=== PATIENT | male | born 1970 | race African-American/Black ===

== ENCOUNTER 2019-02-14 10:17 | Inpatient (IN) | payer OTHER ==
[2019-02-11 18:36] VITALS: BMI 33.8
[2019-02-14] MEDS ORDERED: HEPARIN NA (PORCINE) 5,000 UNITS/ML 1ML VIAL ONE (12:19)
[2019-02-14] MEDS ORDERED: BENZOIN TINCTURE SWABSTICK TP ONE (12:19)
[2019-02-14] MEDS ORDERED: THROMBIN (BOVINE) 5,000 UNIT VIAL TP ONE ×2 (12:19→14:32)
[2019-02-14] MEDS ORDERED: fentaNYL CITRATE 250 MCG/5 ML VIAL ONE (12:37)
[2019-02-14] MEDS ORDERED: PROPOFOL 20 ML ONE ×10 (12:37→15:39)
[2019-02-14] MEDS ORDERED: NEOSTIGMINE METHYLSULFATE 0.5 MG/1 ML - 10 ML MDV ONE (12:37)
[2019-02-14] MEDS ORDERED: MIDAZOLAM HCL 2 MG/2 ML SINGLE DOSE VIAL ONE ×3 (12:38→14:23)
[2019-02-14] MEDS ORDERED: TRANEXAMIC ACID 1000 MG/10 ML VIAL ONE ×2 (12:40→16:22)
[2019-02-14] MEDS ORDERED: EPHEDRINE SULFATE/0.9% NACL/PF 50 MG/10 ML SYRINGE NR ONE ×2 (12:40)
[2019-02-14] MEDS ORDERED: ePHEDrine SULFATE 50 MG/1 ML AMPULE ONE (12:41)
[2019-02-14] MEDS ORDERED: BUPIVACAINE HCL/PF 0.5% (5 MG/ML) 30 ML VIAL IJ ONE (13:11)
[2019-02-14] MEDS ORDERED: ceFAZolin 2 GRAM PREMIX BAG IVPB ONE ×2 (13:40→14:32)
[2019-02-14] MEDS ORDERED: VANCOMYCIN 1,000 MG VIAL (RESTRICTED TO ID ONLY) IVPB ONE ×2 (13:40→14:31)
[2019-02-14] MEDS ORDERED: VANCOMYCIN 1,000 MG VIAL (RESTRICTED TO ID ONLY) ONE (13:43)
[2019-02-14] MEDS ORDERED: ceFAZolin SODIUM 1 GM VIAL ONE (13:43)
[2019-02-14] MEDS ORDERED: HYDROmorphone HCl 2 MG/ML VIAL ONE (13:55)
[2019-02-14] MEDS ORDERED: ROCURONIUM BROMIDE 50 MG/5 ML SYRINGE ONE (14:22)
[2019-02-14] MEDS ORDERED: KETAMINE HCL 200 MG/20 ML VIAL ONE (14:55)
[2019-02-14] MEDS ORDERED: ONDANSETRON 4 MG/2 ML VIAL IVPUSH PRN ×3 (15:34→17:08)
[2019-02-14] MEDS ORDERED: ACETAMINOPHEN 1000 MG/100 ML VIAL (NON FORMULARY) IVPB ONE (15:35)
[2019-02-14] MEDS ORDERED: DEXAMETHASONE SOD PHOSPHATE 4 MG/1 ML VIAL IVPUSH PRN (15:36)
[2019-02-14] MEDS ORDERED: SUCCINYLCHOLINE CHLORIDE 200 MG/10 ML SYRINGE ONE (16:42)
--- NOTE | 2019-02-14 16:57 | PN ---
Progress Note (short form) - Note Progress Note: 48M s/p C3-C4, C4-C5 discectomies; C3, C4, C5 partial corpectomies; C3-C4, C4- C5 anterior cervical decompression and instrumented fusion POD #0. -Admit to ICU x 24 hrs. for airway observation. -Maintain head of bed 45-60 degrees. -Pain medication: per anaesthesia team; NO NSAID's. -DVT PPx: -Mechanical only: BRITTNI's, SCD's. -Post-op Ancef x 3 doses. -Decadron 10mg IV x 1 02/15/2019 at 7am. -f/u AM labs. -Incentive spirometry. -PT/OT/Rehab, OOB. -PWB B/L UE: -No heavy lifting, bending or twisting. -WBAT B/L LE. -f/u TOV (8 hours max). -Keep dressing clean & dry. -Soft diet; Advance diet as tolerated. -B/L UE & LE NV checks. -Care per ICU & primary medical hospitalist teams. -Discharge planning: f/u [facility] [place] office Thursday02/18/2019; call for appointment; . Gilbert Sun MD (Orthopaedic Surgery).
--- NOTE | 2019-02-14 17:04 | OP ---
Operative Note - Note: Operative Date: 02/14/19 Pre-Operative Diagnosis: 1. 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 2. C3-C5 spinal stenosis with balance disorder. 3. Multilevel axial spinal instability Operation: 1. C3-C4, C4-C5 discectomies. 2. C3, C4, C5 partial corpectomies. 3. C3-C4, C4-C5 insertion biomechanical devices. 4. C3-C4, C4-C5 anterior instrumentation. 5. C3-C4, C4-C5 anterior arthrodesis. 6. Bone autograft. 7. Bone allograft Post-Operative Diagnosis: Same as Pre-op Surgeon: Gilbert Sun Nuisance Wildlife Specialist: Rob Sun Anesthesiologist/VALVE ASSEMBLER: Nani Serrano Anesthesia: General Specimens Removed: C3-C4, C4-C5 discs Estimated Blood Loss (mls): 25 Operative Report Dictated: Yes
[2019-02-14] MEDS ORDERED: oxyCODONE HCL 5 MG TABLET PO PRN ×2 (17:08)
[2019-02-14] MEDS ORDERED: HYDROmorphone *PCA* 10MG/50ML DISP.SYRIN ONE (17:40)
--- NOTE | 2019-02-14 17:40 | OP ---
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 OPERATIONS PERFORMED: 1. C3, 4 anterior cervical diskectomy. 2. C4, 5 anterior cervical diskectomy. 3. Partial corpectomy C3, C4, C5. 4. Insertion of cages C3, 4, C4, 5. 5. Anterior arthrodesis C3, 4, C4, 5. 6. Anterior plating C3, 4, 5. 7. Use of biplane fluoroscopy and intraoperative neural monitoring. ANESTHESIA: General. ANTIBIOTICS GIVEN: 2 g Kefzol , 1 g vancomycin preoperative, 10 mg Decadron and tranexamic acid utilized as well. DESCRIPTION OF PROCEDURE: With the patient in supine position, the neck extended appropriately to expose the root of the neck, a lateralizing film was taken to identify the level of C3, 4. This was well above the cricothyroid interval. An oblique incision was made in the neck anteriorly after appropriate cleansing of the skin with Betadine scrub solution, wiped off with alcohol, DuraPrep applied, and appropriate window draping performed. This incision enabled us to extend the dissection through platysma. The investing layer of fascia was opened. This brought about a relatively easy exposure of C4, 5. C3, 4 was more difficult and more proximal. The longus coli was dissected off the anterior vertebral bodies of C3 , 4, and 5 both right and left hand side. The teeth of the medial lateral retractors were seated in the actual longus coli to prevent any harm to the esophagus and the carotid vessels. A marker pin that is a bent 18-gauge needle was placed into C4, 5 to confirm the levels for dissection. To start, we started at C4, 5. A [place] pin was placed in the vertebral body of C4 and in the vertebral body of C5. Distraction across the disk enabled easy access to a very diseased, emptied out disk at that level. The disk clearly was abnormal. The osteophytes and partial corpectomy was then facilitated with a rough re 40-mm bur. A rectangle was cut out of the bone, the caudal component of C4 and the cranial component of C5, to create a rectangle. The dissection was taken right down to the theca. Posterior longitudinal ligament and theca excised completely exposing the dura completely. Once this had been performed, the 1st cage size 7 Fortilink spacer, this was 12 x 40. This was filled with bone morphogenic material and osteogenic material. The distraction device with ligamentotaxis enabled solid hold of the cage within the confines of the vertebral bodies. Once this had been achieved, a distal [place] pin had been removed, that is from C5, and that pin was then placed in C3 of the dissection and retraction appropriately. The distraction across 3, 4 was performed, and once again, under the light microscope as we did with C4, 5, the annulus was transected using Bovie and then the entire disk scooped out, removed appropriately. The endplates were cut using a rough re bur to once again create a similar rectangle after the disk was removed and the anterior diskectomy of C3, 4 removed. Partial corpectomy of C3 and 4 just as it was C4 and 5 performed in order to gain access to the vertebral canal. The canal was decompressed completely. All disk material was removed as was the bone and PLL right down to the theca appropriately. Hemostasis was achieved as it was on the lower disk as well. This disk utilized the use of an 8-mm Fortilink spacer filled with bone morphogenic and biologic material appropriately. Once this had been completed, the plate size was a 32-mm Simplicity plate with 6 x 12-mm screws. All screws were seated and solidly fixed into position accordingly. The wounds were thoroughly lavaged. Lavage was utilized throughout the procedure particularly on bone to keep the temperature of the spinal cord down. No neuromonitoring abnormalities were noted. Hemostasis was achieved fully. The closure was as follows: Investing layer of fascia with platysma with 2-0 Vicryl, skin 3-0 Monocryl with Steri-Strips. OVERALL COMMENT: Operation did well. X-rays revealed excellent positioning of the implants. No complications. MD MARIANN Raygoza/[id number] MTDD
[2019-02-14] MEDS: HYDROmorphone *PCA* 10MG/50ML DISP.SYRIN PCA SCH (18:00)
[2019-02-14] MEDS: LACTATED RINGERS SOLUTION 1,000 ML IV SCH ×3 (19:52→21:00)
--- NOTE | 2019-02-14 21:07 | CONSULT ---
Consultation: REQUESTING PROVIDER: CONSULT REQUEST: ICU HISTORY OF PRESENT ILLNESS: Irma Velez is a 48yM w PMHx HTN s/p C3-C4, C4-C5 discectomies; C3, C4, C5 partial corpectomies; C3-C4, C4-C5 anterior cervical decompression and instrumented fusion with Dr Sun. Currrently complains of neck pain 11/20. Denies chest pain, SOB. REVIEW OF SYSTEMS: CONSTITUTIONAL: Absent: fever, chills, diaphoresis, malaise HEENT: Absent: rhinorrhea, nasal congestion, throat pain, ear pain, eye pain, visual changes CARDIOVASCULAR: Absent: chest pain, syncope, palpitations, irregular heart rate RESPIRATORY: Absent: cough, shortness of breath, dyspnea with exertion GASTROINTESTINAL: Absent: abdominal pain, abdominal distension, nausea, vomiting GENITOURINARY: Absent: dysuria, frequency, urgency, hesitancy MUSCULOSKELETAL: + neck pain Absent: myalgia, arthralgia SKIN: Absent: rash, itching HEMATOLOGIC/IMMUNOLOGIC: Absent: easy bleeding, easy bruising ENDOCRINE: Absent: heat intolerance, cold intolerance NEUROLOGIC: Absent: headache, focal weakness or paresthesias, dizziness, seizure, mental status changes PSYCHIATRIC: Absent: anxiety, depression, suicidal or homicidal ideation PHYSICAL EXAMINATION Vital Signs - 24 hr 02/14/19 02/14/19 02/14/19 10:45 11:15 17:18 Temperature 98.2 F 98.4 F Pulse Rate 60 92 H Respiratory 16 24 H Rate Blood Pressure 130/75 143/76 O2 Sat by Pulse 100 100 Oximetry (%) 02/14/19 02/14/19 02/14/19 17:30 17:45 18:00 Temperature Pulse Rate 90 93 H 79 Respiratory 23 H 18 15 Rate Blood Pressure 135/81 137/76 134/71 O2 Sat by Pulse 100 100 100 Oximetry (%) 02/14/19 02/14/19 02/14/19 18:15 18:30 18:45 Temperature Pulse Rate 78 85 88 Respiratory 14 10 18 Rate Blood Pressure 130/84 133/83 128/88 O2 Sat by Pulse 100 100 100 Oximetry (%) 02/14/19 02/14/19 02/14/19 19:00 19:15 19:30 Temperature 98.9 F Pulse Rate 87 88 82 Respiratory 13 16 20 Rate Blood Pressure 131/72 137/66 120/64 O2 Sat by Pulse 99 98 100 Oximetry (%) GENERAL: Awake, alert, and fully oriented, in mild distress EYES: Pupils equal, round and reactive to light, conjunctiva clear. NECK: In C-collar. Dressing over anterior neck LUNGS: Breath sounds equal, clear to auscultation bilaterally. No wheezes, and no crackles. No accessory muscle use. HEART: Regular rate and rhythm, normal S1 and S2 without murmur, rub or gallop. ABDOMEN: Soft, nontender, not distended, normoactive bowel sounds, no guarding, no rebound, no masses. No hepatomegaly or splenomegaly. LOWER EXTREMITIES: warm, well-perfused. No calf tenderness. No peripheral edema. NEUROLOGICAL: AOx3. Normal speech. Laboratory Results - last 24 hr 02/14/19 02/14/19 10:26 13:15 Blood Type B POSITIVE B POSITIVE Antibody Screen Negative Active Medications Generic Name Dose Route Start Last Admin Trade Name Freq PRN Reason Stop Dose Admin Amlodipine Besylate 5 mg 02/15/19 10:00 Norvasc - PO DAILY PAUL Dexamethasone Sodium Phosphate 4 mg 02/14/19 15:36 Decadron Injection - IVPUSH ONCE PRN NAUSEA AND/OR VOMITING Diazepam 10 mg 02/14/19 22:00 Valium - PO HS PAUL Diphenhydramine HCl 12.5 mg 02/14/19 15:36 Benadryl Injection - IVPUSH ONCE PRN FOR ITCHING Fentanyl 50 mcg 02/14/19 15:34 02/14/19 17:51 Sublimaze Injection - IVPUSH 50 mcg [id number] PRN Administration PAIN-PACU ORDER X 4 DOSES ONLY Gabapentin 300 mg 02/14/19 22:00 Neurontin - PO TID PAUL Hydromorphone HCl 10 mg 02/14/19 15:45 02/14/19 18:00 Hydromorphone 10 Mg/50 Ml-Ns DEDICATED LOCAL TRUCK DRIVER 02/21/19 15:36 10 mg DEDICATED LOCAL TRUCK DRIVER PAUL Administration Protocol Lactated Ringer's 1,000 mls @ 125 mls/hr 02/14/19 15:45 02/14/19 20:29 Lactated Ringers Solution IV Not Given ASDIR PAUL Lactated Ringer's 1,000 mls @ 125 mls/hr 02/14/19 17:15 02/14/19 19:52 Lactated Ringers Solution IV 0 mls ASDIR PAUL Administration Lactated Ringer's 1,000 mls @ 75 mls/hr 02/14/19 17:30 Lactated Ringers Solution IV ASDIR PAUL Nebivolol 10 mg 02/15/19 10:00 Bystolic - PO DAILY PAUL Ondansetron HCl 4 mg 02/14/19 15:36 Zofran Injection IVPUSH Q4H PRN NAUSEA AND/OR VOMITING Ondansetron HCl 4 mg 02/14/19 17:08 Zofran Injection IVPUSH Q6H PRN NAUSEA AND/OR VOMITING Oxycodone HCl 5 mg 02/14/19 17:08 Roxicodone - PO Q4H PRN PAIN LEVEL 1-5 Oxycodone HCl 10 mg 02/14/19 17:08 Roxicodone - PO Q4H PRN PAIN LEVEL 6-10 ASSESSMENT/PLAN: Irma Velez is a 48yM w PMHx HTN s/p C3-C4, C4-C5 discectomies; C3, C4, C5 partial corpectomies; C3-C4, C4-C5 anterior cervical decompression and instrumented fusion with Dr Sun POD #0. Neuro - Pain : 5/10 oxycodone, dilaudid DEDICATED LOCAL TRUCK DRIVER, fentanyl, gabapenin, valium. No NSAIDs - Nausea : zofran - Decadron, benadryl PRN Ortho - C3-C4, C4-C5 discectomies; C3, C4, C5 partial corpectomies; C3-C4, C4- C5 anterior cervical decompression and instrumented fusion - PT - C-collar Cards - hx HTN - restart Bystolic, norvasc - DVT ppx Pulm - incentive spirometry Heme - no active issues GI - soft diet, advance as tolerated - IV fluids - I/O Endo - no active issues ID - afebrile - post-op Ancef x3 FEN - LR @ 125mL/hr - no electrolyte disturbances - soft diet PPX - SCDs - no GI ppx Dispo - ICU Visit type - Emergency Visit Emergency Visit: Yes ED Registration Date: 02/14/19 Care time: The patient presented to the Emergency Department on the above date and was hospitalized for further evaluation of their emergent condition. - New Patient This patient is new to me today: Yes Date on this admission: 02/14/19 - Critical Care Critical Care patient: Yes Total Critical Care Time (in minutes): 35 Critical Care Statement: The care of this patient involved high complexity decision making to prevent further life threatening deterioration of the patient 's condition and/or to evaluate & treat vital organ system(s) failure or risk of failure. ATTENDING PHYSICIAN STATEMENT I saw and evaluated the patient. I reviewed the resident's note and discussed the case with the resident. I agree with the resident's findings and plan as documented. SUBJECTIVE: OBJECTIVE: ASSESSMENT AND PLAN:
[2019-02-14] MEDS ORDERED: diazePAM 5 MG TABLET PO SCH (22:00)
[2019-02-15] MEDS: GABAPENTIN 300 MG CAPSULE (FP) PO SCH ×3 (00:03→21:19)
[2019-02-15 06:24] LABS: BASO % 0.1 % (0-2.0); HEMATOCRIT 45.1 % (35.4-49); HEMOGLOBIN 15.5 GM/dL (11.7-16.9); LYMPH % 5.1 % (8-40); MCH 31.8 pg (25.7-33.7); MCHC 34.3 g/dl (32.0-35.9); MEAN CELL VOLUME 92.6 fl (80-96); MEAN PLT VOLUME 10.5 fl (7.5-11.1); MONO % 3.6 % (3.8-10.2); NEUT % 91.2 % (42.8-82.8); PLATELET COUNT 198 K/MM3 (134-434); RBC 4.86 M/mm3 (4.00-5.60); RDW 13.1 % (11.9-15.9); WHITE BLOOD COUNT 11.8 K/mm3 (4.0-10.0)
[2019-02-15 06:55] LABS: BILIRUBIN,TOTAL 0.6 mg/dL (0.2-1); BLOOD UREA NITROGEN 13.8 mg/dL (7-18); CALCIUM 8.6 mg/dL (8.5-10.1); CREATININE 1.1 mg/dL (0.55-1.3); MAGNESIUM 1.9 mg/dL (1.8-2.4); PHOSPHOROUS 4.1 mg/dL (2.5-4.9); POTASSIUM 3.9 mmol/L (3.5-5.1); TOT PROT 7.2 g/dl (6.4-8.2)
--- NOTE | 2019-02-15 07:10 | PN ---
Physical Exam: SUBJECTIVE: Patient seen and examined by the bedside. He is seated, complaining of pain in his neck. He has not had a BM since the surgery, but has passed gas. OBJECTIVE: Vital Signs Period Temp Pulse Resp BP Sys/Pham Pulse Ox Last 24 Hr 97.8 F-98.9 F 60-99 10-24 120-146/64-92 98-100 GENERAL: AOx3 EYES: PERRLA, EOMI NECK: In C-collar. Dressing over anterior neck LUNGS: Breath sounds equal, clear to auscultation bilaterally. No wheezes, and no crackles. No accessory muscle use. HEART: Regular rate and rhythm, normal S1 and S2 without murmur, rub or gallop. ABDOMEN: Soft, nontender, not distended, normoactive bowel sounds, no guarding, no rebound, no masses. No hepatomegaly or splenomegaly. LOWER EXTREMITIES: warm, well-perfused. No calf tenderness. No peripheral edema. NEUROLOGICAL: AOx3. Normal speech. Motor 5/5 BL, sensations intact BL, numbness and tingling in left hand, strength increased in left hand after surgery Laboratory Results - last 24 hr 02/14/19 02/14/19 02/15/19 10:26 13:15 05:25 WBC 11.8 H RBC 4.86 Hgb 15.5 Hct 45.1 MCV 92.6 MCH 31.8 MCHC 34.3 RDW 13.1 Plt Count 198 MPV 10.5 Absolute Neuts (auto) 10.7 H Neutrophils % 91.2 H Lymphocytes % 5.1 L Monocytes % 3.6 L Eosinophils % 0.0 Basophils % 0.1 Nucleated RBC % 0 Sodium Potassium Chloride Carbon Dioxide Anion Gap BUN Creatinine Est GFR (CKD-EPI)AfAm Est GFR (CKD-EPI)NonAf Random Glucose Calcium Phosphorus Magnesium Total Bilirubin AST ALT Alkaline Phosphatase Total Protein Albumin Blood Type B POSITIVE B POSITIVE Antibody Screen Negative 02/15/19 05:25 WBC RBC Hgb Hct MCV MCH MCHC RDW Plt Count MPV Absolute Neuts (auto) Neutrophils % Lymphocytes % Monocytes % Eosinophils % Basophils % Nucleated RBC % Sodium 139 Potassium 3.9 Chloride 104 Carbon Dioxide 28 Anion Gap 7 L BUN 13.8 Creatinine 1.1 Est GFR (CKD-EPI)AfAm 92.16 Est GFR (CKD-EPI)NonAf 79.52 Random Glucose 114 H Calcium 8.6 Phosphorus 4.1 Magnesium 1.9 Total Bilirubin 0.6 AST 15 ALT 23 Alkaline Phosphatase 78 Total Protein 7.2 Albumin 4.0 Blood Type Antibody Screen Active Medications Generic Name Dose Route Start Last Admin Trade Name Maxq PRN Reason Stop Dose Admin Amlodipine Besylate 5 mg 02/15/19 10:00 Norvasc - PO DAILY PAUL Dexamethasone Sodium Phosphate 4 mg 02/14/19 15:36 Decadron Injection - IVPUSH ONCE PRN NAUSEA AND/OR VOMITING Diazepam 10 mg 02/14/19 22:00 02/15/19 00:03 Valium - PO 10 mg HS PAUL Administration Diphenhydramine HCl 12.5 mg 02/14/19 15:36 Benadryl Injection - IVPUSH ONCE PRN FOR ITCHING Fentanyl 50 mcg 02/14/19 15:34 02/14/19 17:51 Sublimaze Injection - IVPUSH 50 mcg [id number] PRN Administration PAIN-PACU ORDER X 4 DOSES ONLY Gabapentin 300 mg 02/14/19 22:00 02/15/19 00:03 Neurontin - PO 300 mg TID PAUL Administration Hydromorphone HCl 10 mg 02/14/19 15:45 02/14/19 18:00 Hydromorphone 10 Mg/50 Ml-Ns WRAPPER DIPPER 02/21/19 15:36 10 mg WRAPPER DIPPER PAUL Administration Protocol Lactated Ringer's 1,000 mls @ 125 mls/hr 02/14/19 15:45 02/14/19 20:29 Lactated Ringers Solution IV Not Given ASDIR PAUL Lactated Ringer's 1,000 mls @ 125 mls/hr 02/14/19 17:15 02/14/19 19:52 Lactated Ringers Solution IV 0 mls ASDIR PAUL Administration Lactated Ringer's 1,000 mls @ 75 mls/hr 02/14/19 17:30 02/14/19 21:00 Lactated Ringers Solution IV 75 mls/hr ASDIR PAUL Administration Nebivolol 10 mg 02/15/19 10:00 Bystolic - PO DAILY PAUL Ondansetron HCl 4 mg 02/14/19 15:36 02/15/19 00:01 Zofran Injection IVPUSH 4 mg Q4H PRN Administration NAUSEA AND/OR VOMITING Ondansetron HCl 4 mg 02/14/19 17:08 Zofran Injection IVPUSH Q6H PRN NAUSEA AND/OR VOMITING Oxycodone HCl 5 mg 02/14/19 17:08 Roxicodone - PO Q4H PRN PAIN LEVEL 1-5 Oxycodone HCl 10 mg 02/14/19 17:08 Roxicodone - PO Q4H PRN PAIN LEVEL 6-10 ASSESSMENT/PLAN: 48 YO M with PMH of HTN. POD #1 after s/p C3-C4, C4-C5 discectomies; C3, C4, C5 partial corpectomies; C3-C4, C4-C5 anterior cervical decompression and instrumented fusion. # Neuro - Pain : Dilaudid 10mg WRAPPER DIPPER, Oxycodone 5mg PO Q4H PRN, Fentanyl 50mcg Q5H PRN, Gabapenin 300mg PO TID, Valium 10mg PO HS. No NSAIDs - Nausea : Zofran 4mg Q4H PRN - Decadron 4mg IV PRN, Benadryl 12.5mg IV PRN # Ortho - PT - C-collar # Cards - hx HTN - Home meds resumed: Bystolic 10mg PO OD, Norvasc 10mg PO OD # Pulm - Incentive spirometry #ID - Afebrile - WBC 11.8 - Post-op Cefazolin x3 #FEN - LR @ 75 - Soft diet #DVT PE - SCDs #Dispo - Will contact Dr. Sun to discuss course of management ATTENDING PHYSICIAN STATEMENT I saw and evaluated the patient. I reviewed the resident's note and discussed the case with the resident. I agree with the resident's findings and plan as documented. SUBJECTIVE: OBJECTIVE: ASSESSMENT AND PLAN:
--- NOTE | 2019-02-15 07:47 | HP ---
CHIEF COMPLAINT: s/p C3-C4, C4-C5 discectomies; C3, C4, C5 partial corpectomies ; C3-C4, C4-C5 anterior cervical decompression and instrumented fusion, POD #1 PCP: unknown HISTORY OF PRESENT ILLNESS: 48M w/ pmhx of HTN presents in the ICU for post-op care s/p C3-C4, C4-C5 discectomies; C3, C4, C5 partial corpectomies; C3-C4, C4-C5 anterior cervical decompression and instrumented fusion, POD #1. Pt states in July 2012, he fell at work tripping over a concrete step causing lumbar back pain after which he underwent lumbar spinal surgery soon after. In 2014, he had fallen again while at work hitting his elbow against a wall causing numbness/tingling/pain on his L arm radiating up to his neck. He did PT after this incident as well as took oxycodone, but pain worsened and despite these therapies and as a result wanted surgery. Today, he complains of neck pain, but well-controlled with his current pain meds. Additionally, he complains of pain during swallowing even with water. Denies eating any food since his surgery. Denies f/c, n/v, chest pain, sob, abd pain, urinary/bowel symptoms. has not had a bowel movement since surgery. Feels hungry and would like to eat and get out of bed into a chair. 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 Allergies No Known Allergies Allergy (Verified 02/14/19 11:09) HOME MEDICATIONS: Home Medications Medication Instructions Recorded Amlodipine Besylate 5 mg PO DAILY 02/11/19 Diazepam [Valium] 10 mg PO HS 02/11/19 Gabapentin 300 mg PO TID 02/11/19 Ibuprofen [Motrin -] 800 mg PO PRN PRN 02/11/19 Methocarbamol [Robaxin -] 500 mg PO BID 02/11/19 Nebivolol HCl [Bystolic] 10 mg PO DAILY 02/11/19 REVIEW OF SYSTEMS CONSTITUTIONAL: Absent: fever, chills, diaphoresis, generalized weakness, malaise, loss of appetite, weight change HEENT: +pain during swallowing, throat pain Absent: rhinorrhea, nasal congestion, throat pain, throat swelling, difficulty swallowing, mouth swelling, ear pain, eye pain, visual changes CARDIOVASCULAR: Absent: chest pain, syncope, palpitations, irregular heart rate, lightheadedness , peripheral edema RESPIRATORY: Absent: cough, shortness of breath, dyspnea with exertion, orthopnea, wheezing, stridor, hemoptysis GASTROINTESTINAL: Absent: abdominal pain, abdominal distension, nausea, vomiting, diarrhea, constipation, melena, hematochezia GENITOURINARY: Absent: dysuria, frequency, urgency, hesitancy, hematuria, flank pain, genital pain MUSCULOSKELETAL: Absent: myalgia, arthralgia, joint swelling, back pain, neck pain SKIN: Absent: rash, itching, pallor HEMATOLOGIC/IMMUNOLOGIC: Absent: easy bleeding, easy bruising, lymphadenopathy, frequent infections ENDOCRINE: Absent: unexplained weight gain, unexplained weight loss, heat intolerance, cold intolerance NEUROLOGIC: +chronic RLE weakness Absent: headache, focal weakness or paresthesias, dizziness, unsteady gait, seizure, mental status changes, bladder or bowel incontinence PSYCHIATRIC: Absent: anxiety, depression, suicidal or homicidal ideation, hallucinations. PHYSICAL EXAMINATION Vital Signs - 24 hr 02/14/19 02/14/19 02/14/19 10:45 11:15 17:18 Temperature 98.2 F 98.4 F Pulse Rate 60 92 H Respiratory 16 24 H Rate Blood Pressure 130/75 143/76 O2 Sat by Pulse 100 100 Oximetry (%) 02/14/19 02/14/19 02/14/19 17:30 17:45 18:00 Temperature Pulse Rate 90 93 H 79 Respiratory 23 H 18 15 Rate Blood Pressure 135/81 137/76 134/71 O2 Sat by Pulse 100 100 100 Oximetry (%) 02/14/19 02/14/19 02/14/19 18:15 18:30 18:45 Temperature Pulse Rate 78 85 88 Respiratory 14 10 18 Rate Blood Pressure 130/84 133/83 128/88 O2 Sat by Pulse 100 100 100 Oximetry (%) 02/14/19 02/14/19 02/14/19 19:00 19:15 19:30 Temperature 98.9 F Pulse Rate 87 88 82 Respiratory 13 16 20 Rate Blood Pressure 131/72 137/66 120/64 O2 Sat by Pulse 99 98 100 Oximetry (%) 02/14/19 02/14/19 02/14/19 19:45 20:00 21:00 Temperature Pulse Rate 92 H 64 76 Respiratory 19 12 14 Rate Blood Pressure 139/83 146/89 135/90 O2 Sat by Pulse Oximetry (%) 02/14/19 02/14/19 02/14/19 22:00 22:15 23:00 Temperature 98.2 F 98.8 F Pulse Rate 81 89 77 Respiratory 15 15 13 Rate Blood Pressure 131/91 131/91 138/80 O2 Sat by Pulse 98 Oximetry (%) 02/15/19 02/15/19 02/15/19 00:00 00:02 01:00 Temperature Pulse Rate 92 H 89 Respiratory 20 18 Rate Blood Pressure 142/90 135/89 O2 Sat by Pulse 98 Oximetry (%) 02/15/19 02/15/19 02/15/19 02:00 03:00 04:00 Temperature 98 F Pulse Rate 99 H 92 H 72 Respiratory 20 18 15 Rate Blood Pressure 142/92 138/87 129/86 O2 Sat by Pulse Oximetry (%) 02/15/19 02/15/19 05:00 06:00 Temperature 97.8 F Pulse Rate 90 90 Respiratory 19 18 Rate Blood Pressure 132/82 141/92 O2 Sat by Pulse Oximetry (%) GENERAL: Pleasant, well-appearing male. NAD. AAOx3. HEENT: Cervical neck collar in place. AT/NC. EOMI. Moist mucus membranes. Facial symmetry intact. NECK: Limited ROM due to neck collar. Dressing in place, c/d/i. LUNGS: CTA B/L. No wheezes, rhonchi, rales noted. Symmetric chest rise. HEART: RRR. Normal S1, S2. No murmurs noted. ABDOMEN: Soft, NT/ND. Normactive bowel sounds. MUSCULOSKELETAL: Normal range of motion at all joints. No bony deformities or tenderness. No CVA tenderness. UPPER EXTREMITIES: 2+ pulses, warm, well-perfused. No cyanosis. No clubbing. No peripheral edema. B/l sensation intact. LOWER EXTREMITIES: 2+ dorsalis pedis pulses, warm, well-perfused. No calf tenderness. No peripheral edema. 4/5 muscle strength in RLE plantar/dorsiflexion ; 5/5 muscle strength in LLE throughout. B/l sensation intact. NEUROLOGICAL: Cranial nerves II-XII intact. Normal speech. SKIN: Warm, dry, normal turgor, no rashes or lesions noted, normal capillary refill. Laboratory Results - last 24 hr 02/14/19 02/14/19 02/15/19 10:26 13:15 05:25 WBC 11.8 H RBC 4.86 Hgb 15.5 Hct 45.1 MCV 92.6 MCH 31.8 MCHC 34.3 RDW 13.1 Plt Count 198 MPV 10.5 Absolute Neuts (auto) 10.7 H Neutrophils % 91.2 H Lymphocytes % 5.1 L Monocytes % 3.6 L Eosinophils % 0.0 Basophils % 0.1 Nucleated RBC % 0 Sodium Potassium Chloride Carbon Dioxide Anion Gap BUN Creatinine Est GFR (CKD-EPI)AfAm Est GFR (CKD-EPI)NonAf Random Glucose Calcium Phosphorus Magnesium Total Bilirubin AST ALT Alkaline Phosphatase Total Protein Albumin Blood Type B POSITIVE B POSITIVE Antibody Screen Negative 02/15/19 05:25 WBC RBC Hgb Hct MCV MCH MCHC RDW Plt Count MPV Absolute Neuts (auto) Neutrophils % Lymphocytes % Monocytes % Eosinophils % Basophils % Nucleated RBC % Sodium 139 Potassium 3.9 Chloride 104 Carbon Dioxide 28 Anion Gap 7 L BUN 13.8 Creatinine 1.1 Est GFR (CKD-EPI)AfAm 92.16 Est GFR (CKD-EPI)NonAf 79.52 Random Glucose 114 H Calcium 8.6 Phosphorus 4.1 Magnesium 1.9 Total Bilirubin 0.6 AST 15 ALT 23 Alkaline Phosphatase 78 Total Protein 7.2 Albumin 4.0 Blood Type Antibody Screen ASSESSMENT/PLAN: 48M w/ pmhx of HTN presents in the ICU for post-op care s/p C3-C4, C4-C5 discectomies; C3, C4, C5 partial corpectomies; C3-C4, C4-C5 anterior cervical decompression and instrumented fusion, POD #1 #s/p C3-C4, C4-C5 discectomies; C3, C4, C5 partial corpectomies; C3-C4, C4-C5 anterior cervical decompression and instrumented fusion, POD #1 Stable. -Pain control per anesthesia -IS/PT/OOB/WBAT bilateral LE -No heavy lifting, bending, twisting -maintain cervical collar -Maintain head of bed 45-60 degrees #HTN; Cont home meds: Bystolic 10, Amlo 5 #Prophylaxis DVT: SCDs FEN -IVf -recheck lytes in AM -soft diet Dispo -cont to monitor in ICU Visit type - Emergency Visit Emergency Visit: Yes ED Registration Date: 02/14/19 Care time: The patient presented to the Emergency Department on the above date and was hospitalized for further evaluation of their emergent condition. - New Patient This patient is new to me today: Yes Date on this admission: 02/15/19 - Critical Care Critical Care patient: Yes Total Critical Care Time (in minutes): 45 Critical Care Statement: The care of this patient involved high complexity decision making to prevent further life threatening deterioration of the patient 's condition and/or to evaluate & treat vital organ system(s) failure or risk of failure. ATTENDING PHYSICIAN STATEMENT I saw and evaluated the patient. I reviewed the resident's note and discussed the case with the resident. I agree with the resident's findings and plan as documented. SUBJECTIVE: OBJECTIVE: ASSESSMENT AND PLAN:
--- NOTE | 2019-02-15 08:31 | PN ---
Teaching Attending Note Name of Resident: Stacy Loco ATTENDING PHYSICIAN STATEMENT I saw and evaluated the patient. I reviewed the resident's note and discussed the case with the resident. I agree with the resident's findings and plan as documented. SUBJECTIVE: This is a 48 year old man with a history of HTN, cervical spondylosis with myelopathy and radiculopathy who was admitted yesterday after undergoing cervical spine surgery. Today he complains of neck pain and pain with swallowing. OBJECTIVE: Vital Signs Period Temp Pulse Resp BP Sys/Pham Pulse Ox Last 24 Hr 97.8 F-98.9 F 60-99 10-24 120-146/64-92 98-100 HEART: S1S2, RRR LUNGS: Clear ABDOMEN: Obese, soft, non-tender, non-distended, normal BS EXTREMITIES: No edema NEUROLOGICAL: Alert, oriented, normal speech, RUE strength 5/5, LUE strength 3/5 Laboratory Results - last 24 hr 02/14/19 02/14/19 02/15/19 10:26 13:15 05:25 WBC 11.8 H RBC 4.86 Hgb 15.5 Hct 45.1 MCV 92.6 MCH 31.8 MCHC 34.3 RDW 13.1 Plt Count 198 MPV 10.5 Absolute Neuts (auto) 10.7 H Neutrophils % 91.2 H Lymphocytes % 5.1 L Monocytes % 3.6 L Eosinophils % 0.0 Basophils % 0.1 Nucleated RBC % 0 Sodium Potassium Chloride Carbon Dioxide Anion Gap BUN Creatinine Est GFR (CKD-EPI)AfAm Est GFR (CKD-EPI)NonAf Random Glucose Calcium Phosphorus Magnesium Total Bilirubin AST ALT Alkaline Phosphatase Total Protein Albumin Blood Type B POSITIVE B POSITIVE Antibody Screen Negative 02/15/19 05:25 WBC RBC Hgb Hct MCV MCH MCHC RDW Plt Count MPV Absolute Neuts (auto) Neutrophils % Lymphocytes % Monocytes % Eosinophils % Basophils % Nucleated RBC % Sodium 139 Potassium 3.9 Chloride 104 Carbon Dioxide 28 Anion Gap 7 L BUN 13.8 Creatinine 1.1 Est GFR (CKD-EPI)AfAm 92.16 Est GFR (CKD-EPI)NonAf 79.52 Random Glucose 114 H Calcium 8.6 Phosphorus 4.1 Magnesium 1.9 Total Bilirubin 0.6 AST 15 ALT 23 Alkaline Phosphatase 78 Total Protein 7.2 Albumin 4.0 Blood Type Antibody Screen Current Medications Generic Name Dose Route Start Last Admin Trade Name Freq PRN Reason Stop Dose Admin Amlodipine Besylate 5 mg 02/15/19 10:00 Norvasc - PO DAILY PAUL Dexamethasone Sodium Phosphate 4 mg 02/14/19 15:36 Decadron Injection - IVPUSH ONCE PRN NAUSEA AND/OR VOMITING Diazepam 10 mg 02/14/19 22:00 02/15/19 00:03 Valium - PO 10 mg HS PAUL Administration Diphenhydramine HCl 12.5 mg 02/14/19 15:36 Benadryl Injection - IVPUSH ONCE PRN FOR ITCHING Fentanyl 50 mcg 02/14/19 15:34 02/14/19 17:51 Sublimaze Injection - IVPUSH 50 mcg [id number] PRN Administration PAIN-PACU ORDER X 4 DOSES ONLY Gabapentin 300 mg 02/14/19 22:00 02/15/19 00:03 Neurontin - PO 300 mg TID PAUL Administration Hydromorphone HCl 10 mg 02/14/19 15:45 02/14/19 18:00 Hydromorphone 10 Mg/50 Ml-Ns SINKER WINDER 02/21/19 15:36 10 mg SINKER WINDER PAUL Administration Protocol Lactated Ringer's 1,000 mls @ 125 mls/hr 02/14/19 15:45 02/14/19 20:29 Lactated Ringers Solution IV Not Given ASDIR PAUL Lactated Ringer's 1,000 mls @ 125 mls/hr 02/14/19 17:15 02/14/19 19:52 Lactated Ringers Solution IV 0 mls ASDIR PAUL Administration Lactated Ringer's 1,000 mls @ 75 mls/hr 02/14/19 17:30 02/14/19 21:00 Lactated Ringers Solution IV 75 mls/hr ASDIR PAUL Administration Nebivolol 10 mg 02/15/19 10:00 Bystolic - PO DAILY PAUL Ondansetron HCl 4 mg 02/14/19 15:36 02/15/19 00:01 Zofran Injection IVPUSH 4 mg Q4H PRN Administration NAUSEA AND/OR VOMITING Ondansetron HCl 4 mg 02/14/19 17:08 Zofran Injection IVPUSH Q6H PRN NAUSEA AND/OR VOMITING Oxycodone HCl 5 mg 02/14/19 17:08 Roxicodone - PO Q4H PRN PAIN LEVEL 1-5 Oxycodone HCl 10 mg 02/14/19 17:08 Roxicodone - PO Q4H PRN PAIN LEVEL 6-10 ASSESSMENT AND PLAN: This is a 48 year old man with a history of HTN, cervical spondylosis with myelopathy and radiculopathy who was admitted after undergoing cervical spine surgery 1. Cervical spondylosis with myelopathy and radiculopathy - s/p C3-C4, C4-C5 discectomies; C3, C4, C5 partial corpectomies; C3-C4, C4- C5 insertion biomechanical devices; C3-C4, C4-C5 anterior instrumentation; C3-C4 , C4-C5 anterior arthrodesis; bone autograft; bone allograft on 02/14 - Continue Jacquie Quintanilla - Using Dilaudid SINKER WINDER, oxycodone as needed for pain control - Physical therapy 2. HTN - Continue Nakia Madison
[2019-02-15] MEDS ORDERED: PT OWN MED DRAWER 7, Y5N ONE (09:34)
[2019-02-15 09:39] LABS: ANISOCYTOSIS 0; MACROCYTOSIS 0; PLATELET ESTIMATE NORMAL
[2019-02-15] MEDS ORDERED: amLODIPine BESYLATE 5 MG TABLET (FP) PO SCH (10:00)
[2019-02-15] MEDS ORDERED: NEBIVOLOL 10 MG TABLET (FP) PO SCH (10:00)
--- NOTE | 2019-02-15 13:50 | PN ---
Teaching Attending Note Name of Resident: Dameon Beltran ATTENDING PHYSICIAN STATEMENT I saw and evaluated the patient. I reviewed the resident's note and discussed the case with the resident. I agree with the resident's findings and plan as documented. SUBJECTIVE: Patient seen and examined in the ICU. Pain at the surgical site. His previous LUE pain is improved and his strength is slightly better (able to move arm against gravity). No CP or SOB. Intake & Output 02/13/19 02/13/19 02/14/19 02/15/19 00:59 23:59 23:59 23:59 Intake Total 1999 1518 Output Total 1070 1200 Balance 930 318 Weight 217 lb 6 oz Last Vital Signs Temp Pulse Resp BP Pulse Ox 99.2 F 81 16 147/92 98 02/15/19 10:00 02/15/19 10:00 02/15/19 10:00 02/15/19 10:00 02/15/19 09:00 Active Medications Amlodipine Besylate (Norvasc -) 5 mg PO DAILY [facility] Last Admin: 02/15/19 10:33 Dose: 5 mg Dexamethasone Sodium Phosphate (Decadron Injection -) 4 mg IVPUSH ONCE PRN PRN Reason: NAUSEA AND/OR VOMITING Diazepam (Valium -) 10 mg PO HS [facility] Last Admin: 02/15/19 00:03 Dose: 10 mg Diphenhydramine HCl (Benadryl Injection -) 12.5 mg IVPUSH ONCE PRN PRN Reason: FOR ITCHING Fentanyl (Sublimaze Injection -) 50 mcg IVPUSH [id number] PRN PRN Reason: PAIN-PACU ORDER X 4 DOSES ONLY Last Admin: 02/14/19 17:51 Dose: 50 mcg Gabapentin (Neurontin -) 300 mg PO TID [facility] Last Admin: 02/15/19 00:03 Dose: 300 mg Hydromorphone HCl (Hydromorphone 10 Mg/50 Ml-Ns) 10 mg VISCOSITY TESTER VISCOSITY TESTER [facility]; Protocol Stop: 02/21/19 15:36 Last Admin: 02/14/19 18:00 Dose: 10 mg Lactated Ringer's (Lactated Ringers Solution) 1,000 mls @ 125 mls/hr IV ASDIR [facility] Last Admin: 02/14/19 20:29 Dose: Not Given Lactated Ringer's (Lactated Ringers Solution) 1,000 mls @ 125 mls/hr IV ASDIR [facility] Last Admin: 02/14/19 19:52 Dose: 0 mls Lactated Ringer's (Lactated Ringers Solution) 1,000 mls @ 75 mls/hr IV ASDIR [facility] Last Admin: 02/14/19 21:00 Dose: 75 mls/hr Nebivolol (Bystolic -) 10 mg PO DAILY [facility] Last Admin: 02/15/19 10:34 Dose: 10 mg Ondansetron HCl (Zofran Injection) 4 mg IVPUSH Q4H PRN PRN Reason: NAUSEA AND/OR VOMITING Last Admin: 02/15/19 00:01 Dose: 4 mg Ondansetron HCl (Zofran Injection) 4 mg IVPUSH Q6H PRN PRN Reason: NAUSEA AND/OR VOMITING Oxycodone HCl (Roxicodone -) 5 mg PO Q4H PRN PRN Reason: PAIN LEVEL 1-5 Oxycodone HCl (Roxicodone -) 10 mg PO Q4H PRN PRN Reason: PAIN LEVEL 6-10 GENERAL: Awake, alert, and fully oriented, mildly uncomfortable due to pain EYES: Pupils equal, round and reactive to light, conjunctiva clear. NECK: Dressing over anterior neck LUNGS: Breath sounds equal, clear to auscultation bilaterally. No wheezes, and no crackles. No accessory muscle use. HEART: Regular rate and rhythm, normal S1 and S2 without murmur, rub or gallop. ABDOMEN: Soft, nontender, not distended, normoactive bowel sounds, no guarding, no rebound, no masses. No hepatomegaly or splenomegaly. LOWER EXTREMITIES: warm, well-perfused. No calf tenderness. No peripheral edema. NEUROLOGICAL: AOx3. LUE 3/5 Laboratory Results - last 24 hr 02/14/19 02/15/19 02/15/19 13:15 05:25 05:25 WBC 11.8 H RBC 4.86 Hgb 15.5 Hct 45.1 MCV 92.6 MCH 31.8 MCHC 34.3 RDW 13.1 Plt Count 198 MPV 10.5 Absolute Neuts (auto) 10.7 H Neutrophils % 91.2 H Neutrophils % (Manual) 96.0 H Band Neutrophils % 1.0 Lymphocytes % 5.1 L Lymphocytes % (Manual) 2.0 L Monocytes % 3.6 L Monocytes % (Manual) 1 L Eosinophils % 0.0 Eosinophils % (Manual) 0.0 Basophils % 0.1 Basophils % (Manual) 0.0 Myelocytes % (Man) 0 Promyelocytes % (Man) 0 Blast Cells % (Manual) 0 Nucleated RBC % 0 Metamyelocytes 0 Hypochromia 0 Platelet Estimate Normal Polychromasia 0 Poikilocytosis 0 Anisocytosis 0 Microcytosis 0 Macrocytosis 0 Sodium 139 Potassium 3.9 Chloride 104 Carbon Dioxide 28 Anion Gap 7 L BUN 13.8 Creatinine 1.1 Est GFR (CKD-EPI)AfAm 92.16 Est GFR (CKD-EPI)NonAf 79.52 Random Glucose 114 H Calcium 8.6 Phosphorus 4.1 Magnesium 1.9 Total Bilirubin 0.6 AST 15 ALT 23 Alkaline Phosphatase 78 Total Protein 7.2 Albumin 4.0 Blood Type B POSITIVE ASSESSMENT/PLAN: POD #1: 1. C3-C4, C4-C5 discectomies 2. C3, C4, C5 partial corpectomies 3. C3-C4, C4-C5 anterior cervical decompression and instrumented fusion HTN Incentive Spirometry O2 as needed VTE prophylaxis Ambulation/PT per Orthopedics PO as tolerated Pain control Floor when OK with surgery. Dr Davidson
--- NOTE | 2019-02-15 15:03 | PN ---
Progress Note (short form) - Note Progress Note: Post op day#1.S/P C3-C5 ACDF under Ga uneventful.P 96,BP 149/101,and Spo2 100 on O2 3L.Patient on Dilaudid CAREER INFORMATION SPECIALIST and c/o pain score of 6-7/10.Seems like he is not using CAREER INFORMATION SPECIALIST properly so advised him to use it properly.Will see if i can add another medicine for pain as well.Will f/u.
[2019-02-15] MEDS: LACTATED RINGERS SOLUTION 1,000 ML IV SCH ×3 (15:45→18:54)
[2019-02-15] MEDS: HYDROmorphone *PCA* 10MG/50ML DISP.SYRIN PCA SCH (15:48)
[2019-02-15] MEDS ORDERED: amLODIPine BESYLATE 5 MG TABLET (FP) PO ONE (17:36)
[2019-02-15] MEDS: LACTATED RINGERS SOLUTION 1,000 ML/1,000 ML INFUS.BAG IV SCH (17:49)
[2019-02-15] MEDS ORDERED: oxyCODONE HCL 5 MG TABLET PO PRN (18:55)
[2019-02-15] MEDS ORDERED: ONDANSETRON 4 MG/2 ML VIAL IVPUSH PRN ×2 (18:55)
[2019-02-15] MEDS: diazePAM 5 MG TABLET PO SCH (21:19)
[2019-02-16] MEDS: HYDROmorphone *PCA* 10MG/50ML DISP.SYRIN PCA SCH ×3 (03:06→20:55)
[2019-02-16] MEDS: GABAPENTIN 300 MG CAPSULE (FP) PO SCH ×4 (06:49→21:07)
[2019-02-16 08:07] LABS: HEMATOCRIT 44.3 % (35.4-49); HEMOGLOBIN 15.3 GM/dL (11.7-16.9); MCHC 34.6 g/dl (32.0-35.9); MEAN CELL VOLUME 92.7 fl (80-96); MEAN PLT VOLUME 10.9 fl (7.5-11.1); PLATELET COUNT 179 K/MM3 (134-434); RBC 4.78 M/mm3 (4.00-5.60); RDW 13.4 % (11.9-15.9); WHITE BLOOD COUNT 13.1 K/mm3 (4.0-10.0)
[2019-02-16 08:35] LABS: CALCIUM 9.2 mg/dL (8.5-10.1); POTASSIUM 4.1 mmol/L (3.5-5.1)
[2019-02-16] MEDS ORDERED: PT OWN MED DRAWER 7, Y5N ONE (09:44)
--- NOTE | 2019-02-16 09:52 | PN ---
Progress Note (short form) - Note Progress Note: ANESTHESIA/ACUTE PAIN 48M s/p C3-5 ACDF under GA. Transferred from ICU to floor. Using Dilaudid SADDLE AND SIDE WIRE STITCHER: reports sedation, using SADDLE AND SIDE WIRE STITCHER appropriately, ~ 0.8mg/hr since start of shift and clearance of usage history. Reports dysphagia, difficulty swallowing pills. Vital Signs Temperature 99 F 02/16/19 06:00 Pulse Rate 90 02/16/19 09:03 Respiratory Rate 20 02/16/19 09:03 Blood Pressure 148/85 02/16/19 09:03 O2 Sat by Pulse Oximetry (%) 98 02/16/19 09:03 Active Medications Generic Name Dose Route Start Last Admin Trade Name Freq PRN Reason Stop Dose Admin Amlodipine Besylate 5 mg 02/16/19 10:00 Norvasc - PO DAILY PAUL Diazepam 10 mg 02/15/19 22:00 02/15/19 21:19 Valium - PO 10 mg HS PAUL Administration Gabapentin 300 mg 02/15/19 22:00 02/16/19 06:49 Neurontin - PO 300 mg TID PAUL Administration Hydromorphone HCl 10 mg 02/15/19 18:55 02/16/19 09:03 Hydromorphone 10 Mg/50 Ml-Ns SADDLE AND SIDE WIRE STITCHER 02/21/19 15:36 10 mg SADDLE AND SIDE WIRE STITCHER PAUL Administration Protocol Lactated Ringer's 1,000 ml in 1,000 mls @ 75 mls/hr 02/15/19 17:45 02/15/19 17:49 Lactated Ringers Solution IV 75 mls/hr ASDIR PAUL Administration Nebivolol 10 mg 02/16/19 10:00 Bystolic - PO DAILY PAUL Ondansetron HCl 4 mg 02/15/19 18:55 Zofran Injection IVPUSH Q6H PRN NAUSEA AND/OR VOMITING Oxycodone HCl 5 mg 02/15/19 18:55 Roxicodone - PO Q4H PRN PAIN LEVEL 1-5 Oxycodone HCl 10 mg 02/15/19 18:55 Roxicodone - PO Q4H PRN PAIN LEVEL 6-10 sitting up, in collar, NAD CTA RRR Non-focal neuro exam -Med list reviewed. Consider D/C SADDLE AND SIDE WIRE STITCHER for oral analgesics. Oxycodone 10mg q4h PRN. May include low dose hydromorphone IV 0.4mg q4h PRN for breakthrough pain or if continuing to have difficulty swallowing pills as reported. -Continue gabapentin 300mg TID - Consider adding PO acetaminophen 650mg q6h - Will follow until SADDLE AND SIDE WIRE STITCHER D/C'd
[2019-02-16] MEDS: amLODIPine BESYLATE 5 MG TABLET (FP) PO SCH (09:53)
[2019-02-16] MEDS: NEBIVOLOL 10 MG TABLET (FP) PO SCH (09:53)
--- NOTE | 2019-02-16 16:16 | PN ---
Teaching Attending Note Name of Resident: Danielito Toth ATTENDING PHYSICIAN STATEMENT I saw and evaluated the patient. I reviewed the resident's note and discussed the case with the resident. I agree with the resident's findings and plan as documented. SUBJECTIVE: Patient reports occasional nausea. OBJECTIVE: Vital Signs Period Temp Pulse Resp BP Sys/Pham Pulse Ox Last 24 Hr 99 F-100.6 F 60-90 12-20 129-156/68-95 97-100 HEART: S1S2, RRR LUNGS: Clear ABDOMEN: Obese, soft, non-tender, non-distended, normal BS EXTREMITIES: No edema NEUROLOGICAL: Alert, oriented, normal speech, RUE strength 5/5, LUE strength 3/5 Laboratory Results - last 24 hr 02/16/19 02/16/19 06:30 06:30 WBC 13.1 H RBC 4.78 Hgb 15.3 Hct 44.3 MCV 92.7 MCH 32.0 MCHC 34.6 RDW 13.4 Plt Count 179 MPV 10.9 Sodium 139 Potassium 4.1 Chloride 103 Carbon Dioxide 32 Anion Gap 5 L BUN 13.0 Creatinine 1.0 Est GFR (CKD-EPI)AfAm 103.42 Est GFR (CKD-EPI)NonAf 89.23 Random Glucose 82 Calcium 9.2 Current Medications Generic Name Dose Route Start Last Admin Trade Name Freq PRN Reason Stop Dose Admin Amlodipine Besylate 5 mg 02/16/19 10:00 02/16/19 09:53 Norvasc - PO 5 mg DAILY PAUL Administration Diazepam 10 mg 02/15/19 22:00 02/15/19 21:19 Valium - PO 10 mg HS PAUL Administration Gabapentin 300 mg 02/15/19 22:00 02/16/19 14:34 Neurontin - PO 300 mg TID PAUL Administration Hydromorphone HCl 10 mg 02/15/19 18:55 02/16/19 09:03 Hydromorphone 10 Mg/50 Ml-Ns SHAFT HEADMAN 02/21/19 15:36 10 mg SHAFT HEADMAN PAUL Administration Protocol Lactated Ringer's 1,000 ml in 1,000 mls @ 75 mls/hr 02/15/19 17:45 02/15/19 17:49 Lactated Ringers Solution IV 75 mls/hr ASDIR PAUL Administration Nebivolol 10 mg 02/16/19 10:00 02/16/19 09:53 Bystolic - PO 10 mg DAILY PAUL Administration Ondansetron HCl 4 mg 02/15/19 18:55 Zofran Injection IVPUSH Q6H PRN NAUSEA AND/OR VOMITING Oxycodone HCl 5 mg 02/15/19 18:55 Roxicodone - PO Q4H PRN PAIN LEVEL 1-5 Oxycodone HCl 10 mg 02/15/19 18:55 Roxicodone - PO Q4H PRN PAIN LEVEL 6-10 ASSESSMENT AND PLAN: This is a 48 year old man with a history of HTN, cervical spondylosis with myelopathy and radiculopathy who was admitted after undergoing cervical spine surgery 1. Cervical spondylosis with myelopathy and radiculopathy - s/p C3-C4, C4-C5 discectomies; C3, C4, C5 partial corpectomies; C3-C4, C4- C5 insertion biomechanical devices; C3-C4, C4-C5 anterior instrumentation; C3-C4 , C4-C5 anterior arthrodesis; bone autograft; bone allograft on 02/14 - Continue Neurontin, Valium - Continues to use Dilaudid SHAFT HEADMAN - Continue oxycodone as needed - Physical therapy 2. HTN - Continue Nakia Madison
[2019-02-16] MEDS: LACTATED RINGERS SOLUTION 1,000 ML/1,000 ML INFUS.BAG IV SCH (18:02)
--- NOTE | 2019-02-16 19:37 | PN ---
Progress Note (short form) - Note Progress Note: HPI: Pt reports slight nausea with medications, however Zofran continues to help. Mild odynophagia and slight difficulty with pill swallowing, but no hoarseness of voice noted. Vital Signs Temperature 98.2 F 02/16/19 19:28 Pulse Rate 67 02/16/19 19:28 Respiratory Rate 20 02/16/19 19:28 Blood Pressure 132/80 02/16/19 19:28 O2 Sat by Pulse Oximetry (%) 98 02/16/19 18:00 PE: Gen: NAD, awake, alert, oriented x3 HEENT: JUSTUS, EOMI without nystagmus, no posterior oropharynx edema noted Neck: C-collar in place, site of incisions without any significant findings LUNG: CTA b/l without any wheezes or rales CARD: RRR no murmurs appreciated ABD: soft, Nt/ND, normoactive BS Neuro: nonfocal exam. Strength 5/5 in upper extremities with L slight limitation 2/2 to pain. Sensation to dull sense intact EXT: No edema noted CBC, BMP 02/16/19 06:30 02/16/19 06:30 Active Medications Amlodipine Besylate (Norvasc -) 5 mg PO DAILY [facility] Last Admin: 02/16/19 09:53 Dose: 5 mg Diazepam (Valium -) 10 mg PO HS [facility] Last Admin: 02/15/19 21:19 Dose: 10 mg Gabapentin (Neurontin -) 300 mg PO TID [facility] Last Admin: 02/16/19 14:34 Dose: 300 mg Hydromorphone HCl (Hydromorphone 10 Mg/50 Ml-Ns) 10 mg DEAN OF INSTRUCTION DEAN OF INSTRUCTION [facility]; Protocol Stop: 02/21/19 15:36 Last Admin: 02/16/19 09:03 Dose: 10 mg Lactated Ringer's (Lactated Ringers Solution) 1,000 ml in 1,000 mls @ 75 mls/ hr IV ASDIR [facility] Last Admin: 02/16/19 18:02 Dose: 75 mls/hr Nebivolol (Bystolic -) 10 mg PO DAILY [facility] Last Admin: 02/16/19 09:53 Dose: 10 mg Ondansetron HCl (Zofran Injection) 4 mg IVPUSH Q6H PRN PRN Reason: NAUSEA AND/OR VOMITING Oxycodone HCl (Roxicodone -) 5 mg PO Q4H PRN PRN Reason: PAIN LEVEL 1-5 Oxycodone HCl (Roxicodone -) 10 mg PO Q4H PRN PRN Reason: PAIN LEVEL 6-10 Assessment and Plan: POD 2 Anterior cervical spine decompression 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 Hx HTN --Pt still requiring DEAN OF INSTRUCTION pump alongside of Oxycodone 5/10 per pain scale q4h --Will discontinue DEAN OF INSTRUCTION tomorrow with only oral oxycodone for pain control --Continue Neurontin 300mg TID for neuropathic pain --Valium 10mg HS --Continue Norvasc 5mg qdaily and Bystolic 10mg qdaily for BP control --Physical therapy and incentive spirometry encouraged --Continue C-spine collar FEN: Fluids: Discontinue IVF if tolerating diet Electrolyte abnormalities: None Nutrition: Regular PPX: DVT - SCDs; ambulation; chemical ppx as per surgery GI - Not indicated Dispo: Anticipate D/C in 24hrs Case discussed with Dr. Yo Toth, DO - IM PGY-3
[2019-02-16] MEDS: diazePAM 5 MG TABLET PO SCH (21:07)
[2019-02-16] MEDS ORDERED: DEXAMETHASONE SOD PHOSPHATE 10 MG/1 ML VIAL IVPUSH ONE (21:30)
[2019-02-17] MEDS: HYDROmorphone *PCA* 10MG/50ML DISP.SYRIN PCA SCH (02:20)
[2019-02-17] MEDS: GABAPENTIN 300 MG CAPSULE (FP) PO SCH ×3 (05:37→21:09)
[2019-02-17] MEDS: oxyCODONE HCL 5 MG TABLET PO PRN ×5 (05:59→22:38)
[2019-02-17] MEDS ORDERED: SENNOSIDES 8.6MG TABLET (FP) PO PRN (07:30)
[2019-02-17] MEDS ORDERED: SENNOSIDES 8.6MG TABLET (FP) PO ONE (07:30)
[2019-02-17 07:50] LABS: HEMATOCRIT 45.7 % (35.4-49); HEMOGLOBIN 15.8 GM/dL (11.7-16.9); MCH 32.4 pg (25.7-33.7); MCHC 34.6 g/dl (32.0-35.9); MEAN CELL VOLUME 93.7 fl (80-96); MEAN PLT VOLUME 10.6 fl (7.5-11.1); PLATELET COUNT 188 K/MM3 (134-434); RBC 4.88 M/mm3 (4.00-5.60); RDW 13.4 % (11.9-15.9); WHITE BLOOD COUNT 7.7 K/mm3 (4.0-10.0)
[2019-02-17 08:14] LABS: CALCIUM 9.2 mg/dL (8.5-10.1); POTASSIUM 4.4 mmol/L (3.5-5.1)
[2019-02-17] MEDS: BENZOCAINE/MENTH/CETYLPYRD CL 1 EACH LOZENGE MM PRN ×2 (08:36→19:09)
[2019-02-17] MEDS ORDERED: PT OWN MED DRAWER 7, Y5N ONE (09:36)
[2019-02-17] MEDS: DOCUSATE SODIUM 100 MG CAPSULE (FP) PO SCH (09:36)
[2019-02-17] MEDS: NEBIVOLOL 10 MG TABLET (FP) PO SCH (09:37)
[2019-02-17] MEDS: amLODIPine BESYLATE 5 MG TABLET (FP) PO SCH (09:37)
[2019-02-17] MEDS: ACETAMINOPHEN 325 MG TABLET (FP) PO PRN (10:52)
--- NOTE | 2019-02-17 11:43 | PN ---
Teaching Attending Note Name of Resident: Danielito Toth ATTENDING PHYSICIAN STATEMENT I saw and evaluated the patient. I reviewed the resident's note and discussed the case with the resident. I agree with the resident's findings and plan as documented. SUBJECTIVE: Feels improved, mild left upper extremity numbness OBJECTIVE: Vital Signs Temperature 98.8 F 02/17/19 10:00 Pulse Rate 75 02/17/19 10:00 Respiratory Rate 18 02/17/19 10:00 Blood Pressure 125/80 02/17/19 10:00 O2 Sat by Pulse Oximetry (%) 98 02/17/19 08:03 General: Young man comfortable, not in distress HEENT; mucous membranes moist, no anemia, no jaundice, PERRLA, no nystagmus Neck: Cervical collar in place Chest: Nontender, clear to auscultation bilaterally Abdomen: Nondistended, soft, bowel sounds present. 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 CBC, BMP 02/17/19 07:05 02/17/19 07:05 Active Medications Acetaminophen (Tylenol -) 650 mg PO Q4H PRN PRN Reason: FEVER Last Admin: 02/17/19 10:52 Dose: 650 mg Amlodipine Besylate (Norvasc -) 5 mg PO DAILY [facility] Last Admin: 02/17/19 09:37 Dose: 5 mg Benzocaine/Menthol (Cepacol Lozenge -) 1 each MM PRN PRN PRN Reason: SORE THROAT Last Admin: 02/17/19 08:36 Dose: 1 each Diazepam (Valium -) 10 mg PO HS [facility] Last Admin: 02/16/19 21:07 Dose: 10 mg Docusate Sodium (Colace -) 100 mg PO DAILY [facility] Last Admin: 02/17/19 09:36 Dose: 100 mg Gabapentin (Neurontin -) 300 mg PO TID [facility] Last Admin: 02/17/19 05:37 Dose: 300 mg Nebivolol (Bystolic -) 10 mg PO DAILY [facility] Last Admin: 02/17/19 09:37 Dose: 10 mg Ondansetron HCl (Zofran Injection) 4 mg IVPUSH Q6H PRN PRN Reason: NAUSEA AND/OR VOMITING Oxycodone HCl (Roxicodone -) 5 mg PO Q4H PRN PRN Reason: PAIN LEVEL 1-5 Oxycodone HCl (Roxicodone -) 10 mg PO Q4H PRN PRN Reason: PAIN LEVEL 6-10 Last Admin: 02/17/19 09:38 Dose: 10 mg Senna (Senna -) 1 tab PO HS PRN PRN Reason: CONSTIPATION ASSESSMENT AND PLAN:48 YO M with PMH of HTN. POD 3 after s/p C3-C4, C4-C5 discectomies; C3, C4, C5 partial corpectomies; C3-C4, C4-C5 anterior cervical decompression and instrumented fusion. 1. Status post cervical surgery. POD 30, pain is better controlled on oxycodone, will follow up neurosurgery recommendation. 2. Hypertension: Continue amlodipine and Bystolic. 3. Case management as per orthopedic team. DVT prophylaxis.
[2019-02-17] MEDS ORDERED: LACTULOSE 20 GM/30 ML UDC (FOR ORAL USE ONLY) PO ONE (14:13)
[2019-02-17] MEDS: POLYETHYLENE GLYCOL 3350 119 GM BTL PO SCH (14:53)
--- NOTE | 2019-02-17 14:54 | PATH ---
Surgical Pathology Report Patient Name: MAHNAZ NAIR Med. Rec. #: [id number] /Age/Gender: 1970 (Age: 48) / M Account: [id number] Location: [facility] MED/SURG Taken: 02/14/2019 Received: 02/15/2019 Reported: 02/17/2019 Physicians: Rob Sun M.D. Specimen(s) Received CERVICAL DISC Clinical History Cervical disc disorder Final Diagnosis CERVICAL DISC, C-3/ C4-C5, ANTERIOR CERVICAL DISCECTOMY AND FUSION: BENIGN INTERVERTEBRAL DISC TISSUE. Electronically Signed Eusebia Hanna M.D. Gross Description Received in formalin labeled "cervical disc," is a 4.5 x 3.5 x 0.3 cm aggregate of bauer fragments of fibrocartilaginous tissue. A loan servicing representative portion is submitted in one cassette. /02/15/2019 saudi02/15/2019
[2019-02-17] MEDS ORDERED: oxyCODONE HCL 5 MG TABLET PO PRN (15:36)
--- NOTE | 2019-02-17 15:38 | PN ---
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 otherwise dept of anesthesiology will sign off case at this time.
--- NOTE | 2019-02-17 16:57 | PN ---
Progress Note (short form) - Note Progress Note: HPI: Mild odynophagia and slight difficulty with pill swallowing, but no hoarseness of voice noted. No BM yet. Vital Signs Temperature 98.0 F 02/17/19 14:00 Pulse Rate 78 02/17/19 14:00 Respiratory Rate 18 02/17/19 14:00 Blood Pressure 141/90 02/17/19 14:00 O2 Sat by Pulse Oximetry (%) 97 02/17/19 13:31 PE: Gen: NAD, awake, alert, oriented x3 HEENT: JUSTUS, EOMI without nystagmus, no posterior oropharynx edema noted Neck: C-collar in place, site of incisions without any significant findings LUNG: CTA b/l without any wheezes or rales CARD: RRR no murmurs appreciated ABD: soft, Nt/ND, normoactive BS Neuro: nonfocal exam. Strength 5/5 in R upper extremity with L slight limitation 4/5. 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 [facility]; Protocol Stop: 02/21/19 15:36 Last Admin: 02/16/19 09:03 Dose: 10 mg Lactated Ringer's (Lactated Ringers Solution) 1,000 ml in 1,000 mls @ 75 mls/ hr IV ASDIR [facility] Last Admin: 02/16/19 18:02 Dose: 75 mls/hr Nebivolol (Bystolic -) 10 mg PO DAILY [facility] Last Admin: 02/16/19 09:53 Dose: 10 mg Ondansetron HCl (Zofran Injection) 4 mg IVPUSH Q6H PRN PRN Reason: NAUSEA AND/OR VOMITING Oxycodone HCl (Roxicodone -) 5 mg PO Q4H PRN PRN Reason: PAIN LEVEL 1-5 Oxycodone HCl (Roxicodone -) 10 mg PO Q4H PRN PRN Reason: PAIN LEVEL 6-10 Assessment and Plan: POD 2 Anterior cervical spine decompression 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 Hx HTN --D/C PROGRESS CLERK pump; pain with oxycodone 5 and 10 per pain scale --Cepacol lozenges added --Colace 100mg, Senna 1 tab, Miralax, and Lactulose added today --Can give enema if needed for constipation --Continue Neurontin 300mg TID for neuropathic pain --Valium 10mg HS --Continue Norvasc 5mg qdaily and Bystolic 10mg qdaily for BP control --Physical therapy and incentive spirometry encouraged --Continue C-spine collar FEN: Fluids: None Electrolyte abnormalities: None Nutrition: Regular PPX: DVT - SCDs; ambulation; chemical ppx as per surgery GI - Not indicated Dispo: Anticipate D/C in 24hrs Case discussed with Dr. Jaime Toth, DO - IM PGY-3
[2019-02-17] MEDS ORDERED: MAGNESIUM CITRATE 300 ML BOTTLE PO ONE (18:45)
[2019-02-17] MEDS: diazePAM 5 MG TABLET PO SCH (21:09)
[2019-02-18] MEDS: oxyCODONE HCL 5 MG TABLET PO PRN ×4 (02:40→19:16)
[2019-02-18] MEDS: GABAPENTIN 300 MG CAPSULE (FP) PO SCH ×3 (05:52→22:53)
[2019-02-18] MEDS: BENZOCAINE/MENTH/CETYLPYRD CL 1 EACH LOZENGE MM PRN (06:58)
--- NOTE | 2019-02-18 09:16 | PN ---
Teaching Attending Note Name of Resident: Danielito Toth ATTENDING PHYSICIAN STATEMENT I saw and evaluated the patient. I reviewed the resident's note and discussed the case with the resident. I agree with the resident's findings and plan as documented. SUBJECTIVE: Feels comfortable OBJECTIVE: Vital Signs Temperature 98.8 F 02/17/19 20:08 Pulse Rate 70 02/17/19 20:08 Respiratory Rate 20 02/17/19 21:00 Blood Pressure 153/72 02/17/19 20:08 O2 Sat by Pulse Oximetry (%) 99 02/18/19 08:26 General: Young man comfortable, not in distress HEENT; mucous membranes moist, no anemia, no jaundice, PERRLA, no nystagmus Neck: Cervical collar active place Chest: Nontender, clear to auscultation bilaterally Abdomen: Nondistended, soft, bowel sounds present. 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 , no gross motor sensory deficit CBC, BMP 02/17/19 07:05 02/17/19 07:05 Active Medications Acetaminophen (Tylenol -) 650 mg PO Q4H PRN PRN Reason: FEVER Last Admin: 02/17/19 10:52 Dose: 650 mg Amlodipine Besylate (Norvasc -) 5 mg PO DAILY [facility] Last Admin: 02/17/19 09:37 Dose: 5 mg Benzocaine/Menthol (Cepacol Lozenge -) 1 each MM PRN PRN PRN Reason: SORE THROAT Last Admin: 02/18/19 06:58 Dose: 1 each Diazepam (Valium -) 10 mg PO HS [facility] Last Admin: 02/17/19 21:09 Dose: 10 mg Docusate Sodium (Colace -) 100 mg PO DAILY [facility] Last Admin: 02/17/19 09:36 Dose: 100 mg Gabapentin (Neurontin -) 300 mg PO TID [facility] Last Admin: 02/18/19 05:52 Dose: 300 mg Nebivolol (Bystolic -) 10 mg PO DAILY [facility] Last Admin: 02/17/19 09:37 Dose: 10 mg Ondansetron HCl (Zofran Injection) 4 mg IVPUSH Q6H PRN PRN Reason: NAUSEA AND/OR VOMITING Oxycodone HCl (Roxicodone -) 10 mg PO Q4H PRN PRN Reason: PAIN LEVEL 1-5 Oxycodone HCl (Roxicodone -) 15 mg PO Q4H PRN PRN Reason: PAIN LEVEL 6-10 Last Admin: 02/18/19 06:58 Dose: 15 mg Polyethylene Glycol (Miralax (For Daily Use) -) 17 gm PO DAILY [facility] Last Admin: 02/17/19 14:53 Dose: 17 gm Senna (Senna -) 1 tab PO HS PRN PRN Reason: CONSTIPATION Last Admin: 02/17/19 21:09 Dose: 1 tab ASSESSMENT AND PLAN:48 YO M with PMH of HTN. POD 3 after s/p C3-C4, C4-C5 discectomies; C3, C4, C5 partial corpectomies; C3-C4, C4-C5 anterior cervical decompression and instrumented fusion. 1. Status post cervical surgery. POD 4th , pain is better controlled on oxycodone, will follow up neurosurgery recommendation. 2. Hypertension: Continue amlodipine and Bystolic. 3. Disposition as per orthopedic team. DVT prophylaxis.
[2019-02-18] MEDS: ACETAMINOPHEN 325 MG TABLET (FP) PO PRN ×2 (11:04→19:16)
[2019-02-18] MEDS: amLODIPine BESYLATE 5 MG TABLET (FP) PO SCH (11:04)
[2019-02-18] MEDS: DOCUSATE SODIUM 100 MG CAPSULE (FP) PO SCH (11:04)
[2019-02-18] MEDS: POLYETHYLENE GLYCOL 3350 119 GM BTL PO SCH (11:05)
--- NOTE | 2019-02-18 11:29 | DS ---
Physical Exam: UPDATE: Pt will be discharged tomorrow AM as patient does not have transportation home today. Is aware of discharge instructions and can be discharged tomorrow as he is cleared by surgical team. SUBJECTIVE: Pt complaining of neck pain with tension-type headache. Pt had small BM yesterday afternoon after bowel regiment. Sore throat improved. OBJECTIVE: Vital Signs Period Temp Pulse Resp BP Sys/Pham Pulse Ox Last 24 Hr 98.0 F-98.8 F 70-78 18-20 141-153/72-90 97-99 PHYSICAL EXAM PE: Gen: NAD, awake, alert, oriented x3 HEENT: JUSTUS, EOMI without nystagmus, no posterior oropharynx edema noted Neck: C-collar in place, site of incisions without any significant findings LUNG: CTA b/l without any wheezes or rales CARD: RRR no murmurs appreciated ABD: soft, Nt/ND, normoactive BS Neuro: nonfocal exam. Strength 5/5 in R upper extremity with L slight limitation 4/5. Sensation to dull sense intact EXT: No edema noted LABS Active Medications Acetaminophen (Tylenol -) 650 mg PO Q4H PRN PRN Reason: FEVER Last Admin: 02/18/19 19:16 Dose: 650 mg Amlodipine Besylate (Norvasc -) 5 mg PO DAILY [facility] Last Admin: 02/18/19 11:04 Dose: 5 mg Benzocaine/Menthol (Cepacol Lozenge -) 1 each MM PRN PRN PRN Reason: SORE THROAT Last Admin: 02/18/19 06:58 Dose: 1 each Diazepam (Valium -) 10 mg PO HS [facility] Last Admin: 02/17/19 21:09 Dose: 10 mg Docusate Sodium (Colace -) 100 mg PO DAILY [facility] Last Admin: 02/18/19 11:04 Dose: 100 mg Gabapentin (Neurontin -) 300 mg PO TID [facility] Last Admin: 02/18/19 15:19 Dose: 300 mg Nebivolol (Bystolic -) 10 mg PO DAILY [facility] Last Admin: 02/18/19 12:01 Dose: 10 mg Ondansetron HCl (Zofran Injection) 4 mg IVPUSH Q6H PRN PRN Reason: NAUSEA AND/OR VOMITING Oxycodone HCl (Roxicodone -) 10 mg PO Q4H PRN PRN Reason: PAIN LEVEL 1-5 Oxycodone HCl (Roxicodone -) 15 mg PO Q4H PRN PRN Reason: PAIN LEVEL 6-10 Last Admin: 02/18/19 19:16 Dose: 15 mg Polyethylene Glycol (Miralax (For Daily Use) -) 17 gm PO DAILY [facility] Last Admin: 02/18/19 11:05 Dose: 17 gm Senna (Senna -) 1 tab PO HS PRN PRN Reason: CONSTIPATION Last Admin: 02/17/19 21:09 Dose: 1 tab IMAGING: Cervical Spine XR: AP and lateral views of the cervical spine are limited. There is anterior fusion at C3-C5 with disc space replacements. There is straightening. The prevertebral soft tissues appear prominent. The limited imaging is available for review. HOSPITAL COURSE: Date of Admission:02/14/19 Date of Discharge: 02/18/19 Pt admitted on 02/14/19 for anterior cervical spine decompression (C3-C5) performed by Dr. Sun. Pt's perioperative course was uneventful and upon recovery pt was placed on C-collar with USED CAR LOT ATTENDANT pump for pain mitigation. Pt was transitioned off of USED CAR LOT ATTENDANT to oral narcotics PRN for pain control and was continued on home medications. Pt reported sore throat without hoarseness which has overall improved in patient's hospital course. His cervicalgia improved with strength in b/l upper extremities increasing (R>L). Pt was noted to be constipated and ws provided bowel regiment which had interval resolution. Pt is able to tolerate soft food and use oral pain relief medications to help mitigate his pain. Patient is to be discharged in stable condition with follow- up with Dr. Sun and his primary care provider (if none can f/u with Dr. Rosario for post-hospital care). Minutes to complete discharge: 33 Discharge Summary Problems reviewed: Yes Reason For Visit: CERVICAL DISC DISORDER Condition: Improved - Instructions Diet, Activity, Other Instructions: You were seen here to help with your neck pain and received a decompression surgery with Dr. Sun. You were put into a neck collar and your strength improved. MEDICATIONS: Please take Tylenol 650mg every 6 hours as needed for your pain. Do not exceed 4grams per day as this can negatively impact your liver. You were prescribed a constipation regiment to take while using narcotics for pain control as they will cause constipation Please take Gabapentin 300mg THREE TIMES DAILY to help with your pain and tingling Please use your neck collar 23hours per day (can be taken off to shower) until you see Dr. Sun Follow-up: Please follow up with Dr. Sun: Orthopaedics [place] office Thursday or Wednesday 02/21-02/22; call for appointment; . Please follow-up with your primary care doctor in 3-5 days. If you do not have one please make an appointment with Dr. Rosario (number provided in packet) to establish care and post-hospital follow-up. Referrals: Mango Rosario MD [Staff Physician] - (3-5 days) Gilbert Sun MD [Staff Physician] - Disposition: HOME - Home Medications Comprehensive Discharge Medication List: Ambulatory Orders Amlodipine Besylate 5 mg PO DAILY 02/11/19 Diazepam [Valium] 10 mg PO HS 02/11/19 Gabapentin 300 mg PO TID 02/11/19 Ibuprofen [Motrin -] 800 mg PO PRN PRN 02/11/19 Methocarbamol [Robaxin -] 500 mg PO BID 02/11/19 Nebivolol HCl [Bystolic] 10 mg PO DAILY 02/11/19 This patient is new to me today: No Emergency Visit: No Critical Care patient: No - Discharge Referral Referred to [facility] Med P.C.: No ATTENDING PHYSICIAN STATEMENT I saw and evaluated the patient. I reviewed the resident's note and discussed the case with the resident. I agree with the resident's findings and plan as documented. SUBJECTIVE: OBJECTIVE: ASSESSMENT AND PLAN:
[2019-02-18] MEDS: NEBIVOLOL 10 MG TABLET (FP) PO SCH (12:01)
[2019-02-18] MEDS: diazePAM 5 MG TABLET PO SCH (22:53)
[2019-02-19] MEDS: GABAPENTIN 300 MG CAPSULE (FP) PO SCH (05:52)
[2019-02-19] MEDS: oxyCODONE HCL 5 MG TABLET PO PRN (10:50)
[2019-02-19] MEDS: amLODIPine BESYLATE 5 MG TABLET (FP) PO SCH (10:51)
[2019-02-19] MEDS: NEBIVOLOL 10 MG TABLET (FP) PO SCH (10:51)
[2019-02-19] MEDS: ACETAMINOPHEN 325 MG TABLET (FP) PO PRN (10:51)
[2019-02-19] MEDS: DOCUSATE SODIUM 100 MG CAPSULE (FP) PO SCH (10:51)
[2019-02-19] MEDS: POLYETHYLENE GLYCOL 3350 119 GM BTL PO SCH (10:53)
[2019-02-19 11:20] VITALS: BP 159/81; PULSE 80; TEMP 98.6
--- NOTE | 2019-02-19 12:13 | PN ---
Progress Note, Physician Chief Complaint: Comfortable denies any complaint now off cervical collar cleared to [place] by orthopedics. - Current Medication List Current Medications: Active Medications Acetaminophen (Tylenol -) 650 mg PO Q4H PRN PRN Reason: FEVER Last Admin: 02/19/19 10:51 Dose: 650 mg Amlodipine Besylate (Norvasc -) 5 mg PO DAILY [facility] Last Admin: 02/19/19 10:51 Dose: 5 mg Benzocaine/Menthol (Cepacol Lozenge -) 1 each MM PRN PRN PRN Reason: SORE THROAT Last Admin: 02/18/19 06:58 Dose: 1 each Diazepam (Valium -) 10 mg PO HS [facility] Last Admin: 02/18/19 22:53 Dose: 10 mg Docusate Sodium (Colace -) 100 mg PO DAILY [facility] Last Admin: 02/19/19 10:51 Dose: 100 mg Gabapentin (Neurontin -) 300 mg PO TID [facility] Last Admin: 02/19/19 05:52 Dose: 300 mg Nebivolol (Bystolic -) 10 mg PO DAILY [facility] Last Admin: 02/19/19 10:51 Dose: 10 mg Ondansetron HCl (Zofran Injection) 4 mg IVPUSH Q6H PRN PRN Reason: NAUSEA AND/OR VOMITING Oxycodone HCl (Roxicodone -) 10 mg PO Q4H PRN PRN Reason: PAIN LEVEL 1-5 Oxycodone HCl (Roxicodone -) 15 mg PO Q4H PRN PRN Reason: PAIN LEVEL 6-10 Last Admin: 02/19/19 10:50 Dose: 15 mg Polyethylene Glycol (Miralax (For Daily Use) -) 17 gm PO DAILY [facility] Last Admin: 02/19/19 10:53 Dose: Not Given Senna (Senna -) 1 tab PO HS PRN PRN Reason: CONSTIPATION Last Admin: 02/17/19 21:09 Dose: 1 tab - Objective Vital Signs: Vital Signs Temperature 98.6 F 02/19/19 11:00 Pulse Rate 80 02/19/19 11:00 Respiratory Rate 18 02/19/19 11:00 Blood Pressure 159/81 02/19/19 11:00 O2 Sat by Pulse Oximetry (%) 97 02/19/19 07:42 SUBJECTIVE: Feels comfortable OBJECTIVE: General: Young man comfortable, not in distress HEENT; mucous membranes moist, no anemia, no jaundice, PERRLA, no nystagmus Neck: Status for cervical surgery, surgical wound and dressing, no swelling no stridor. Chest: Nontender, clear to auscultation bilaterally Abdomen: Nondistended, soft, bowel sounds present. 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 Active Medications Acetaminophen (Tylenol -) 650 mg PO Q4H PRN PRN Reason: FEVER Last Admin: 02/17/19 10:52 Dose: 650 mg Amlodipine Besylate (Norvasc -) 5 mg PO DAILY [facility] Last Admin: 02/17/19 09:37 Dose: 5 mg Benzocaine/Menthol (Cepacol Lozenge -) 1 each MM PRN PRN PRN Reason: SORE THROAT Last Admin: 02/18/19 06:58 Dose: 1 each Diazepam (Valium -) 10 mg PO HS [facility] Last Admin: 02/17/19 21:09 Dose: 10 mg Docusate Sodium (Colace -) 100 mg PO DAILY [facility] Last Admin: 02/17/19 09:36 Dose: 100 mg Gabapentin (Neurontin -) 300 mg PO TID [facility] Last Admin: 02/18/19 05:52 Dose: 300 mg Nebivolol (Bystolic -) 10 mg PO DAILY [facility] Last Admin: 02/17/19 09:37 Dose: 10 mg Ondansetron HCl (Zofran Injection) 4 mg IVPUSH Q6H PRN PRN Reason: NAUSEA AND/OR VOMITING Oxycodone HCl (Roxicodone -) 10 mg PO Q4H PRN PRN Reason: PAIN LEVEL 1-5 Oxycodone HCl (Roxicodone -) 15 mg PO Q4H PRN PRN Reason: PAIN LEVEL 6-10 Last Admin: 02/18/19 06:58 Dose: 15 mg Polyethylene Glycol (Miralax (For Daily Use) -) 17 gm PO DAILY [facility] Last Admin: 02/17/19 14:53 Dose: 17 gm Senna (Senna -) 1 tab PO HS PRN PRN Reason: CONSTIPATION Last Admin: 02/17/19 21:09 Dose: 1 tab ASSESSMENT AND PLAN:48 YO M with PMH of HTN. POD 3 after s/p C3-C4, C4-C5 discectomies; C3, C4, C5 partial corpectomies; C3-C4, C4-C5 anterior cervical decompression and instrumented fusion. 1. Status post cervical surgery. POD 5th , pain is better controlled on oxycodone, patient is clear to discharge by orthopedic will go home today. 2. Hypertension: Continue amlodipine and Bystolic. 3. Disposition as per orthopedic team. Labs: CBC, BMP 02/17/19 07:05 02/17/19 07:05
== END 2019-02-19 14:23 | disposition home or self-care (01) | DRG 321 ==
LOC: JSAMEDAYSX 10:17 → JICU 19:43 → J8W 02-15 18:39
PROVIDERS: ADMIT Orthopaedic Surgery Orthopaedic Surgery of the Spine; ATTEND Internal Medicine
PROC: 0RG20A0 Fusion of 2 or more Cervical Vertebral Joints with Interbody Fusion Device, Anterior Approach, Anterior Column, Open Approach (ICD-10-PCS; 2019-02-14)
PROC: B01BZZZ Fluoroscopy of Spinal Cord (ICD-10-PCS; 2019-02-14)
PROC: 4A1004G Monitoring of Central Nervous Electrical Activity, Intraoperative, Open Approach (ICD-10-PCS; 2019-02-14)
PROC: 0RB30ZZ Excision of Cervical Vertebral Disc, Open Approach (ICD-10-PCS; principal; 2019-02-14 12:00)
DX: M48.02 Spinal stenosis, cervical region (principal); M47.12 Other spondylosis with myelopathy, cervical region; I10 Essential (primary) hypertension; E66.9 Obesity, unspecified; Z68.32 Body mass index [BMI] 32.0-32.9, adult
CPT/HCPCS: 36415; 71045-TC-FY; 72050-TC-FY; 76000-TC-FY; 80048; 80053; 83735; 84100; 85025; 85027; 86850; 86900; 86901; 94010; 94660; 94760; 97116-GP; 97161-GP; J1100; J1644